=== PATIENT | female | born 1970 | race Caucasian/White ===

== ENCOUNTER 2018-11-04 13:21 | Inpatient (IN) | payer MEDICAID ==
[2018-11-04 13:31] VITALS: BMI 26.4
--- NOTE | 2018-11-04 14:04 | ED PDOC ---
Arrival/HPI - General Chief Complaint: Psychiatric Evaluation Time Seen by Provider: 11/04/18 13:22 Historian: Patient - History of Present Illness Narrative History of Present Illness (Text): 11/04/18 13:42 48-year-old female presents to the emergency room complaining of anxiety, racing thoughts and feeling depressed for over a week. Patient states that her symptoms felt worse today, she went to the [facility] clinic however her doctor was not in prompting ER visit. Otherwise patient admits to suicidal ideations without any specific plans. She denies any fever, headache, chest pain, shortness of breath, abdominal pain, nausea, vomiting, HI. Patient has no additional complaints. Past Medical History - Provider Review Primary Care Provider: Jerry Collado - Infectious Disease Hx of Infectious Diseases: None - Endocrine/Metabolic Hx Systemic Lupus Erythematosus: Yes - Hematological/Oncological Hx Anemia: Yes - Psychiatric Hx Anxiety: Yes Hx Depression: Yes Hx Substance Use: No Family/Social History Family/Social History: Unknown Family HX Smoking Status: Never Smoked Hx Alcohol Use: No Hx Substance Use: No Allergies/Home Meds Allergies/Adverse Reactions: Allergies No Known Allergies Allergy (Verified 11/04/18 13:31) Home Medications: Home Meds Medication Instructions Recorded Confirmed Aspirin [Aspirin Chewable] 81 mg PO DAILY 11/04/18 11/04/18 Bisacodyl [Correctol] 5 mg PO DAILY 11/04/18 11/04/18 Ergocalciferol (Vitamin D2) 2,000 unit PO DAILY 11/04/18 11/04/18 [Vitamin D2] Escitalopram Oxalate [Lexapro] 5 mg PO DAILY 11/04/18 11/04/18 Ferrous Sulfate [High Potency Iron] 27 mg PO DAILY 11/04/18 11/04/18 Hydroxychloroquine Sulfate 200 mg PO DAILY 11/04/18 11/04/18 [Plaquenil] Multivitamins [Hexavitamin] 1 tab PO DAILY 11/04/18 11/04/18 Review of Systems - Review of Systems Constitutional: absent: Fatigue, Fevers Respiratory: absent: SOB, Cough Cardiovascular: absent: Chest Pain, Palpitations Gastrointestinal: absent: Abdominal Pain, Nausea, Vomiting Musculoskeletal: absent: Arthralgias, Back Pain, Neck Pain Skin: absent: Rash, Pruritis, Skin Lesions Neurological: absent: Headache, Dizziness Psychiatric: Anxiety, Depression, Suicidal Ideation Physical Exam Vital Signs Temp Pulse Resp BP Pulse Ox 11/04/18 13:31 98.8 F 96 H 18 171/75 H 96 Temperature: Afebrile Blood Pressure: Hypertensive Pulse: Regular Respiratory Rate: Normal Appearance: Positive for: Well-Appearing, Non-Toxic, Comfortable, Other (Patient appears visibly upset and is tearful.) Pain Distress: None Mental Status: Positive for: Alert and Oriented X 3 - Systems Exam Head: Present: Atraumatic, Normocephalic Pupils: Present: PERRL Extroacular Muscles: Present: EOMI Conjunctiva: Present: Normal Mouth: Present: Moist Mucous Membranes Neck: Present: Normal Range of Motion. No: Meningeal Signs, Lymphadenopathy Respiratory/Chest: Present: Clear to Auscultation, Good Air Exchange. No: Respiratory Distress, Accessory Muscle Use Cardiovascular: Present: Regular Rate and Rhythm, Normal S1, S2. No: Murmurs Abdomen: No: Tenderness, Distention, Peritoneal Signs Back: Present: Normal Inspection Upper Extremity: Present: Normal Inspection. No: Cyanosis, Edema Lower Extremity: Present: Normal Inspection. No: Edema Neurological: Present: GCS=15, CN II-XII Intact, Speech Normal, Motor Func Gr ossly Intact, Normal Sensory Function Skin: Present: Warm, Dry, Normal Color. No: Rashes Psychiatric: Present: Alert, Oriented x 3, Anxious, Depressed Mood Medical Decision Making ED Course and Treatment: 11/04/18 14:08 Plan : - Labs - UA - EKG - CXR - Reassess / disposition 11/04/18 15:45 Labs reviewed. UA (-) UDS (-) Alcohol (-) EKG : NSR at 81 bpm, no acute ST changes. Patient seen and evaluated by PES adonay Sampson, who states that patient will require inpatient psychiatric treatment for MDD and anxiety d/o, as per Dr. Tuttle. 11/04/18 18:18 Chest X-ray reviewed by radiologist, shows: no active disease. 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 Disposition/Present on Arrival - Present on Arrival Any Indicators Present on Arrival: No History of DVT/PE: No History of Uncontrolled Diabetes: No Urinary Catheter: No History of Decub. Ulcer: No History Surgical Site Infection Following: None - Disposition Have Diagnosis and Disposition been Completed?: Yes Diagnosis: MDD (major depressive disorder), Anxiety disorder Disposition: HOSPITALIZED Disposition Time: 15:45 Patient Plan: Admission Patient Problems: Current Active Problems Problem Status Onset MDD (major depressive disorder) Acute Anxiety disorder Acute Condition: STABLE
[2018-11-04 15:21] LABS: BASO # 0.01 K/mm3 (0.0-2.0); BASO % 0.2 % (0.0-3.0); EOS # 0.1 (0.0-0.7); EOS % 3.4 % (1.5-5.0); HEMOGLOBIN 12.5 g/dL (12.0-16.0); LYMPH # 1.9 (1.2-3.4); LYMPH % 45.6 % (22.0-35.0); MEAN CELL VOLUME 77.4 fl (80.0-105.0); MEAN CORPUSCULAR HEMOGLOBIN 25.3 pg (25.0-35.0); MEAN CORPUSCULAR HGB CONC 32.6 g/dl (31.0-37.0); MEAN PLATELET VOLUME 10.4 fl (7.0-11.0); MONO # 0.2 (0.1-0.6); MONO % 5.6 % (1.0-6.0); RBC 4.95 10^6/uL (3.5-6.1); RED CELL DISTRIBUTION WIDTH 14.6 % (11.5-14.5); WHITE BLOOD COUNT 4.1 10^3/uL (4.5-11.0)
[2018-11-04 15:28] LABS: ALB/GLOB RATIO 1.3 (1.1-1.8); ALBUMIN 4.1 g/dL (3.0-4.8); ALT/SGPT 28 U/L (7-56); AST/SGOT 23 U/L (14-36); BLOOD UREA NITROGEN 11 mg/dL (7-21); GFR NON-AFRICAN AMERICAN > 60
[2018-11-04 17:02] LABS: URINE BILIRUBIN NEGATIVE (NEGATIVE); URINE BLOOD SMALL (NEGATIVE); URINE GLUCOSE (UA) NEGATIVE (NEGATIVE); URINE LEUKOCYTE ESTERASE NEGATIVE Leu/uL (NEGATIVE); URINE PROTEIN NEGATIVE mg/dL (<30 mg/dL); URINE UROBILINOGEN 0.2 E.U./dL (<1 E.U./dL)
[2018-11-04 17:06] LABS: URINE APPEARANCE CLEAR (CLEAR); URINE COLOR YELLOW (YELLOW)
[2018-11-04 17:17] LABS: URINE AMORPHOUS SEDIMENT LARGE /hpf; URINE BACTERIA FEW /hpf; URINE RBC 0 - 2 /hpf (0-2); URINE WBC 0 - 2 /hpf (0-6)
[2018-11-04 17:45] LABS: BARBITURATES, UR NEGATIVE (NEGATIVE); BENZODIAZEPINES, UR NEGATIVE (NEGATIVE); OPIATES, UR NEGATIVE (NEGATIVE); PHENCYCLIDINE, UR NEGATIVE (NEGATIVE)
--- NOTE | 2018-11-04 18:09 | RAD ---
Date of service: 11/04/2018 HISTORY: pysch eval COMPARISON: No prior. FINDINGS: LUNGS: No active pulmonary disease. PLEURA: No significant pleural effusion identified, no pneumothorax apparent. CARDIOVASCULAR: No atherosclerotic calcification present Normal. OSSEOUS STRUCTURES: No significant abnormalities. VISUALIZED UPPER ABDOMEN: Normal. OTHER FINDINGS: None. IMPRESSION: No active disease.
[2018-11-04 18:13] VITALS: O2SAT 100
[2018-11-04] MEDS ORDERED: Magnesium Hydroxide Susp 30 ml UD PO PRN (20:56)
--- NOTE | 2018-11-05 03:16 | PCM.BM ---
<Malachi Flores - Last Filed: 11/05/18 03:14> Treatment Plan Problems - Problems identified on initial assessmt Ineffective coping Date Initiated: 11/04/18 Time Initiated: 22:00 Assessment reference: NA Status: Active Hopelessness Date Initiated: 11/04/18 Time Initiated: 22:35 Assessment reference: NA Status: Active Altered sleep pattern Date Initiated: 11/04/18 Time Initiated: 22:50 Assessment reference: NA Status: Active Treatment assets and liabiliti Patient Assests: ADL independent, physically healthy Patient Liabilities: financial problems, poor support system, relationship conflicts - Milieu Protocol Maintain good personal hygiene: daily Encourage regular showers, daily Remind patient to perform daily oral care, daily Assist patient to perform ADL's Conduct patient checks and document Observation sheet: Q15 minutes Maintain personal safety: daily Educate patient to report safety concerns to staff, daily Monitor environment for contraband/sharps Medication safety: Monitor for expected outcome, potential side effects: daily, Assess barriers to learning: daily, Assess readiness for medication education: daily Family Contact Family involvement: Patient does not wish Family/SO involvement Discharge/Continuing Care - Education Needs Education Needs: Patient Medication, Patient Coping Skills - Discharge Discharge Criteria: Free of Suicidal thoughts, Normal sleep pattern <Radha Khoury - Last Filed: 11/05/18 10:36> - Diagnosis (1) Anxiety disorder Status: Acute Interventions: 11/05/18 10:36 * group, milieu and supportive tx * SW consultation for discharge plan and social issues * Lexapro increased to 20 mg po HS for depression and anxiety * Wellbutrin XL 150 mg po daily for depression * Klonopin 0.5 mg AM and 1 mg po HS prn: anxiety * Sonata 10 mg HS prn: insomnia (2) MDD (major depressive disorder) Status: Acute Interventions: * group, milieu and supportive tx * SW consultation for discharge plan and social issues * Lexapro increased to 20 mg po HS for depression and anxiety * Wellbutrin XL 150 mg po daily for depression * Klonopin 0.5 mg AM and 1 mg po HS prn: anxiety * Sonata 10 mg HS prn: insomnia 11/05/18 10:36 <Moni Ellis - Last Filed: 11/07/18 11:56> Family Contact Family involvement: Famliy/SO not involved <Camilla Edwards - Last Filed: 11/07/18 12:12>
--- NOTE | 2018-11-05 09:17 | CARD ---
APPROVED REPORT Date of service: 11/04/2018 EKG Measurement Heart [id number] <Conclusion> Normal sinus rhythm Normal ECG
[2018-11-05 10:03] LABS: GLUCOSE,FASTING 93 mg/dL (65-110); HDL CHOLESTEROL 38 mg/dL (29-60)
[2018-11-05 10:13] LABS: LDL CHOLESTEROL 138 mg/dL (0-129)
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
[2018-11-05] MEDS: oxyCODONE 5 mg Immediate Release Tab PO PRN (15:26)
[2018-11-05] MEDS: buPROPion 150 mg/24 Hours XL Tab PO SCH (15:26)
--- NOTE | 2018-11-05 20:25 | CP.PCM.PCO ---
<Oswaldo Win - Last Filed: 11/05/18 20:22> Addendum Addendum: PGY1 Overnight Note S: Patient had complaints of left sided chest pain with radiation to arm. Describes as pins/needles sensation down left arm. New onset. No cardiac history except for HTN. O: VSS. Heart RRR. Lungs CTA b/l. Pain reproducible with palpation. A: Chest Pain P: will obtain stat ekg. Will obtain stat trop at this time. Please continue to monitor. <Jesus Zamarripa - Last Filed: 11/10/18 20:35> Attending/Attestation - Attestation I have personally seen and examined this patient.: Yes I have fully participated in the care of the patient.: Yes I have reviewed all pertinent clinical information: Yes
--- NOTE | 2018-11-06 01:46 | CP.PCM.PN ---
Subjective - Date & Time of Evaluation Date of Evaluation: 11/06/18 Time of Evaluation: 01:43 - Subjective Subjective: I was asked to co-sign order for EKG and troponin. They were ordered because patient had chest pain. I went to see patient with a nurse. She is sleeping comfortable, apparently has no chest pain now. Medical record was reviewed. This 48 year old woman admitted with heartburn, chest pain. Has past medical history of depression, lupus, anxiety, family history of hypertension and diabetes mellitus, past surgical history of cholecystectomy, C3-C4 and L3-L4 surgery. Objective - Vital Signs/Intake and Output Vital Signs (last 24 hours): Temp Pulse Resp BP Pulse Ox 98.8 F 64 19 127/59 L 100 11/04/18 13:31 11/04/18 18:13 11/05/18 01:35 11/04/18 18:13 11/04/18 18:13 - Medications Medications: Current Medications Acetaminophen (Tylenol 325mg Tab) 650 mg PO Q6H PRN PRN Reason: Pain, Mild (1-3) Last Admin: 11/05/18 09:38 Dose: 650 mg Bupropion HCl (Wellbutrin Xl) 150 mg PO DAILY RAYMOND Last Admin: 11/05/18 15:26 Dose: 150 mg Clonazepam (Klonopin) 0.5 mg PO BID PRN; Protocol PRN Reason: Anxiety Clonazepam (Klonopin) 1 mg PO HS PRN; Protocol PRN Reason: Anxiety Escitalopram Oxalate (Lexapro) 20 mg PO HS RAYMOND Last Admin: 11/05/18 21:30 Dose: 20 mg Hydroxychloroquine Sulfate (Plaquenil) 200 mg PO DAILY RAYMOND; Protocol Last Admin: 11/05/18 15:27 Dose: 200 mg Magnesium Hydroxide (Milk Of Magnesia) 30 ml PO DAILY PRN PRN Reason: Constipation Oxycodone HCl (Oxycodone Immediate Release Tab) 5 mg PO BID PRN PRN Reason: Pain, moderate (4-7) Last Admin: 11/05/18 15:26 Dose: 5 mg Zaleplon (Sonata) 10 mg PO HS PRN PRN Reason: Insomnia Last Admin: 11/04/18 21:07 Dose: 10 mg - Labs Labs: 11/04/18 15:10 11/04/18 15:10 - Constitutional Appears: Well, No Acute Distress - Head Exam Head Exam: ATRAUMATIC, NORMAL INSPECTION, NORMOCEPHALIC - Eye Exam Eye Exam: Normal appearance - ENT Exam ENT Exam: Normal External Ear Exam - Neck Exam Neck Exam: Normal Inspection - Respiratory Exam Respiratory Exam: NORMAL BREATHING PATTERN - Cardiovascular Exam Cardiovascular Exam: absent: JVD - GI/Abdominal Exam GI & Abdominal Exam: absent: Distended - Rectal Exam Rectal Exam: Deferred - Exam Additional comments: Deferred. - Extremities Exam Extremities Exam: Normal Inspection - Back Exam Back Exam: NORMAL INSPECTION - Neurological Exam Neurological Exam: Alert, Awake, Oriented x3 - Psychiatric Exam Psychiatric exam: Normal Affect, Normal Mood - Skin Skin Exam: Normal Color Assessment and Plan - Assessment and Plan (Free Text) Assessment: Heartburn. Chest pain. Lupus. Depression. Anxiety. Plan: EKG.-----> normal sinus rhythm no acute changes. Troponin. Continue present management.
[2018-11-06] MEDS: buPROPion 150 mg/24 Hours XL Tab PO SCH (08:18)
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
--- NOTE | 2018-11-06 11:15 | CP.PCM.CON ---
<Justin Miller - Last Filed: 11/06/18 11:11> History of Present Illness - History of Present Illness History of Present Illness: Justin Miller DO, PGY-2: Medical Consult note for Dr. America Timmons 48 year old female with a past medical history of lupus, depression, and anxiety who presented to ED for SI. Medical team was consulted for the patient's lupus. Chart review indicates patient is on her maintanence dose of Hydrochloroquine. Patient admits to have the general constellation of Raynauds phenomena, heartburn, and reflux, but denies any acute complaints. Yesterday she did complain of chest pain and EKG was NSR. She denies having chest pain, nausea, vomiting, diarrhea, fever, chills, or malaise. She does complain of generalized aches, which are usual for her. Otherwise, a complete 12 point ROS is negative except as mentioned above. PMH: lupus, depression, anxiety, Family History: mother has hypertension and father had diabetes mellitus PSH: cholecystecomy C3-4 and L3-4 surgery Allergies: NKDA Social: started drinking six months ago, smokes cigarettes and marijuana occas ionally, unemployed Review of Systems - Review of Systems All systems: reviewed and no additional remarkable complaints except (as per HPI) Past Patient History - Infectious Disease Hx of Infectious Diseases: None - Past Social History Smoking Status: Never Smoked - CARDIAC Hx Cardiac Disorders: No Hx Hypertension: No - PULMONARY Hx Tuberculosis: No - NEUROLOGICAL HX Cerebrovascular Accident: No Hx Seizures: No - HEENT Hx HEENT Problems: No - RENAL Hx Chronic Kidney Disease: No - ENDOCRINE/METABOLIC Hx Systemic Lupus Erythematosus: Yes - HEMATOLOGICAL/ONCOLOGICAL Hx Anemia: Yes - INTEGUMENTARY Hx Cellulitis: No - MUSCULOSKELETAL/RHEUMATOLOGICAL Hx Back Pain: No - GASTROINTESTINAL Hx Constipation: No - GENITOURINARY/GYNECOLOGICAL Hx Sexually Transmitted Disorders: No - PSYCHIATRIC Hx Anxiety: Yes Hx Depression: Yes - SURGICAL HISTORY Hx Surgeries: No - ANESTHESIA Hx Anesthesia Reactions: No Meds Allergies/Adverse Reactions: Allergies Allergy/AdvReac Type Severity Reaction Status Date / Time No Known Allergies Allergy Verified 11/04/18 13:31 - Medications Medications: Current Medications Acetaminophen (Tylenol 325mg Tab) 650 mg PO Q6H PRN PRN Reason: Pain, Mild (1-3) Last Admin: 11/05/18 09:38 Dose: 650 mg Bupropion HCl (Wellbutrin Xl) 150 mg PO DAILY RAYMOND Last Admin: 11/06/18 08:18 Dose: 150 mg Clonazepam (Klonopin) 0.5 mg PO BID PRN; Protocol PRN Reason: Anxiety Clonazepam (Klonopin) 1 mg PO HS PRN; Protocol PRN Reason: Anxiety Escitalopram Oxalate (Lexapro) 20 mg PO HS RAYMOND Last Admin: 11/05/18 21:30 Dose: 20 mg Hydroxychloroquine Sulfate (Plaquenil) 200 mg PO DAILY RAYMOND; Protocol Last Admin: 11/06/18 08:18 Dose: 200 mg Magnesium Hydroxide (Milk Of Magnesia) 30 ml PO DAILY PRN PRN Reason: Constipation Oxycodone HCl (Oxycodone Immediate Release Tab) 5 mg PO BID PRN PRN Reason: Pain, moderate (4-7) Last Admin: 11/05/18 15:26 Dose: 5 mg Zaleplon (Sonata) 10 mg PO HS PRN PRN Reason: Insomnia Last Admin: 11/04/18 21:07 Dose: 10 mg Physical Exam - Constitutional Appears: Non-toxic, No Acute Distress - Head Exam Head Exam: ATRAUMATIC, NORMOCEPHALIC - Eye Exam Eye Exam: EOMI, Normal appearance - ENT Exam ENT Exam: Mucous Membranes Moist, Normal Oropharynx - Neck Exam Neck exam: Positive for: Normal Inspection - Respiratory Exam Respiratory Exam: Clear to Auscultation Bilateral, NORMAL BREATHING PATTERN. absent: Accessory Muscle Use - Cardiovascular Exam Cardiovascular Exam: RRR, +S1, +S2 - GI/Abdominal Exam GI & Abdominal Exam: Normal Bowel Sounds, Soft. absent: Guarding, Rebound - Extremities Exam Extremities exam: Positive for: normal inspection. Negative for: calf tenderness - Back Exam Back exam: NORMAL INSPECTION - Neurological Exam Neurological exam: Alert, CN II-XII Intact, Oriented x3 - Psychiatric Exam Psychiatric exam: Normal Affect, Normal Mood - Skin Skin Exam: Dry, Intact, Normal Color, Warm Results - Vital Signs Recent Vital Signs: Last Vital Signs Temp 98 F 11/06/18 07:00 Pulse 73 11/06/18 07:00 Resp 18 11/06/18 07:00 BP 123/69 11/06/18 07:00 Pulse Ox 100 11/04/18 18:13 - Labs Result Diagrams: 11/04/18 15:10 11/04/18 15:10 Labs: Laboratory Results - last 24 hr 11/05/18 11/05/18 11/05/18 09:40 09:40 20:30 Hemoglobin A1c 5.9 Troponin I < 0.01 RPR Nonreactive Assessment & Plan - Assessment and Plan (Free Text) Assessment: 48 year old female with a past medical history of lupus, anxiety, and depression who [place] [facility] [place] worsening depressive symptoms. Medical team was consulted for evaluation and management of the patient's lupus. 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 Case was reviewed and discussed with Dr. America Timmons <America Timmons R - Last Filed: 11/06/18 16:32> Meds - Medications Medications: Current Medications Acetaminophen (Tylenol 325mg Tab) 650 mg PO Q6H PRN PRN Reason: Pain, Mild (1-3) Last Admin: 11/05/18 09:38 Dose: 650 mg Bupropion HCl (Wellbutrin Xl) 150 mg PO DAILY RAYMOND Last Admin: 11/06/18 08:18 Dose: 150 mg Clonazepam (Klonopin) 0.5 mg PO BID PRN; Protocol PRN Reason: Anxiety Clonazepam (Klonopin) 1 mg PO HS PRN; Protocol PRN Reason: Anxiety Escitalopram Oxalate (Lexapro) 20 mg PO HS RAYMOND Last Admin: 11/05/18 21:30 Dose: 20 mg Famotidine (Pepcid) 20 mg PO 1000,2200 RAYMOND Hydroxychloroquine Sulfate (Plaquenil) 200 mg PO DAILY RAYMOND; Protocol Last Admin: 11/06/18 08:18 Dose: 200 mg Magnesium Hydroxide (Milk Of Magnesia) 30 ml PO DAILY PRN PRN Reason: Constipation Oxycodone HCl (Oxycodone Immediate Release Tab) 5 mg PO BID PRN PRN Reason: Pain, moderate (4-7) Last Admin: 11/06/18 12:34 Dose: 5 mg Zaleplon (Sonata) 10 mg PO HS PRN PRN Reason: Insomnia Last Admin: 11/04/18 21:07 Dose: 10 mg Results - Vital Signs Recent Vital Signs: Last Vital Signs Temp 98 F 11/06/18 07:00 Pulse 69 11/06/18 15:56 Resp 18 11/06/18 07:00 BP 137/76 11/06/18 15:56 Pulse Ox 100 11/04/18 18:13 - Labs Result Diagrams: 11/04/18 15:10 11/04/18 15:10 Labs: Laboratory Results - last 24 hr 11/05/18 20:30 Troponin I < 0.01 Attending/Attestation - Attestation I have personally seen and examined this patient.: Yes I have fully participated in the care of the patient.: Yes I have reviewed all pertinent clinical information: Yes Notes (Text): Patient seen and examined by me with resident at approximately 10:10AM on 11/06/18. Case including HPI, physical exam, and assessment and plan discussed with resident. Agree with above with following additions/corrections. Patient is a 48-year-old female with past medical history significant for lupus, depression, PTSD, and anxiety that presented to the emergency room with worsening depression and suicidal ideations. Patient was admitted to the psychiatric unit. Medical team consulted for history of lupus. Patient states that she is feeling okay. Complains of some body aches. Patient denies any chest pain. She states she normally takes oxycodone or tramadol for pain at home. She denies any nausea, vomiting, or abdominal pain. No headaches or dizziness. No fevers or chills. No dysuria. Patient states she follows with her doctor in [place] for her lupus and takes plaquenil. She also gets an "injection" every 3 weeks. Patient does have some heartburn. 12 point review of systems reviewed by me. Please see above HPI. All other systems negative Home medications reviewed with patient. Physical exam: General: Awake and lying in bed in no acute distress HEENT: Normocephalic, atraumatic. Extraocular muscles intact. Pupils equal and reactive, no scleral icterus. Oropharynx is pink and moist. No pharyngeal erythema or exudate appreciated. Neck is supple. Cardiovascular: Normal rhythm. Normal S1 and S2. No murmurs, rubs, or gallops appreciated Pulmonary: Normal respiratory effort. No rhonchi, rales, or wheezing appreciated. Gastrointestinal: Soft, nondistended. Nontender. Positive bowel sounds all 4 quadrants. No guarding. Musculoskeletal: Moves all extremities. No calf tenderness. No edema appreciated. Central nervous system: AAO x3. CN 2-12 grossly intact. No focal deficits. Dermatologic: Skin warm and dry. Assessment and plan: Patient is a 48-year-old female with past medical history significant for lupus, depression, PTSD, and anxiety that presented to the em ergency room with worsening depression and suicidal ideations. Patient was admitted to the psychiatric unit. Medical team consulted for history of lupus. 1. Lupus. Does not appear to be in acute exacerbation. Patient should continue to follow with her doctor as an outpatient. UA not concerning for lupus nephritis. Continue home plaquenil 2. Heart burn. Placed on Pepcid. Patient should follow up with her doctor for further work up and treatment. 3. Depression. Anxiety. PTSD. Suicidal ideations. Care as per primary team Case discussed in detail with patient. All questions answered. Thank you for allowing us to participate in the care of your patient. We will sign off. Please reconsult if any time if needed.
[2018-11-06] MEDS: oxyCODONE 5 mg Immediate Release Tab PO PRN (12:34)
--- NOTE | 2018-11-07 07:17 | CARD ---
APPROVED REPORT Date of service: 11/05/2018 EKG Measurement Heart [id number] <Conclusion> Normal sinus rhythm Normal ECG
[2018-11-07] MEDS: buPROPion 150 mg/24 Hours XL Tab PO SCH (09:24)
[2018-11-07] MEDS: oxyCODONE 5 mg Immediate Release Tab PO PRN (13:12)
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
[2018-11-08] MEDS: oxyCODONE 5 mg Immediate Release Tab PO PRN (11:24)
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
[2018-11-09 07:09] VITALS: TEMP 98.1
[2018-11-09] MEDS: oxyCODONE 5 mg Immediate Release Tab PO PRN (12:52)
--- NOTE | 2018-11-09 13:31 | PN ---
DATE: 11/08/2018 SUBJECTIVE: Admitted to psych floor for severe depression, worsening anxiety and severe functional impairment. When I saw her, she seems feeling better, less depressed. She still feels down. She is concerned about her kids which causes her problems of the social park, but otherwise physically she does not complain of much except her lower back pain. PHYSICAL EXAMINATION: VITAL SIGNS: Temperature 98.4, heart rate 70, blood pressure 121/73, respirations 20. HEAD AND NECK: Normal. No JVD. No thyromegaly. CHEST: Clear bilaterally. CARDIAC: First sounds and second sound normal. No murmur, rub or gallop. ABDOMEN: Soft, nontender. EXTREMITIES: No edema. NEUROLOGIC: Normal. LABORATORY DATA: White count 4.1, hemoglobin 12.5, hematocrit 38.4, platelets 223. Chemistries: Sodium 142, potassium 3.8, chloride 101, bicarb 31, BUN 11 and creatinine 0.6. Blood sugar 129 and liver function test is normal. LDL cholesterol 138. Her TSH is normal. The patient also had troponin, which is negative. IMPRESSION AND PLAN: 1. Severe depression associated with anxiety exacerbation. The patient is currently getting Seroquel for mood stabilization 100 mg b.i.d. and Prozac 20 mg p.o. daily. In addition to Prozac, she is getting Lexapro 10 mg p.o. at bedtime. Also on Klonopin 0.5 b.i.d. and 1 mg at bedtime to help her anxiety, sleep symptoms, insomnia relief and we will continue current medications. She is also on Ambien 5 mg at bedtime. She seems doing better with these. She feels better. She seems talking, moving around and interactive. 2. Chronic back pain. She does have chronic disk disease. She does have a history of lupus. Continue Plaquenil, continue oxycodone 5 mg, seems doing okay in with that. Continue current therapy. We will follow up clinically. We will give her baby aspirin every other day in addition to the Pepcid 20 mg b.i.d. Jerry Collado MD [facility] # [id number]
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
[2018-11-10 07:26] VITALS: BP 113/67; PULSE 64; RESP 20
--- NOTE | 2018-11-10 13:43 | PN ---
DATE: 11/09/2018 SUBJECTIVE: The patient is stable. No new complaints. She feels a little depressed, sitting on the bed, drawing some pictures, and she is happy that her son got a job. PHYSICAL EXAMINATION: GENERAL: No change. VITAL SIGNS: Temperature 98, heart rate 64, blood pressure 109/65, respirations 19. HEAD AND NECK: Normal. No JVD. No thyromegaly. CHEST: Clear bilaterally. CARDIAC: First sound and second sound normal. ABDOMEN: Soft, nontender. EXTREMITIES: No edema. NEUROLOGIC: Normal. IMPRESSION AND PLAN: 1. Depression. Continue current medication. She seems doing better on the medications. She is getting Prozac 20 mg p.o. daily, Klonopin 0.5 mg b.i.d. The patient seems stable on the current medication. Continue current therapy. 2. Insomnia. Continue Ambien 5 mg at bedtime. The patient is also getting Seroquel 100 mg p.o. b.i.d., which help her insomnia also and helps her mood stabilize. 3. Chronic back pain. She seems stable with the current medication. Continue current therapy. 4. History of lupus, Plaquenil seems doing okay. Continue current therapy. The patient getting Tylenol, Plaquenil, Pepcid, aspirin 81. Continue followup with you. Jerry Collado MD
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
== END 2018-11-10 15:10 | disposition home or self-care (01) | DRG 430 ==
LOC: ED 13:21 → ERH 15:45 → PSYC 18:48
PROVIDERS: ADMIT Psychiatry & Neurology Psychiatry; ATTEND Psychiatry & Neurology Psychiatry
DX: F33.2 Major depressive disorder, recurrent severe without psychotic features (principal); M32.9 Systemic lupus erythematosus, unspecified; F43.10 Post-traumatic stress disorder, unspecified; F12.90 Cannabis use, unspecified, uncomplicated; F17.210 Nicotine dependence, cigarettes, uncomplicated; F29 Unspecified psychosis not due to a substance or known physiological condition; F41.8 Other specified anxiety disorders; G47.00 Insomnia, unspecified; G89.29 Other chronic pain; I10 Essential (primary) hypertension; I73.00 Raynaud's syndrome without gangrene; K21.9 Gastro-esophageal reflux disease without esophagitis; R45.851 Suicidal ideations; Z79.899 Other long term (current) drug therapy; Z91.410 Personal history of adult physical and sexual abuse; Z82.49 Family history of ischemic heart disease and other diseases of the circulatory system; Z83.3 Family history of diabetes mellitus